=== PATIENT | female | born 1985 | race Two or more races ===

== ENCOUNTER 2017-07-23 22:15 | Emergency (ER) | payer OTHER ==
[~2017-07-23] VITALS: Ht 160 cm; Wt 54.4 kg
[2017-07-23] MEDS ORDERED: LORA10TA72 PO (23:01)
[2017-07-23] MEDS ORDERED: ONDANSETRON ODT 4 MG PO ONE (23:30)
[2017-07-23 23:51] LABS: HCG UR LOT HCG706132
[2017-07-23 23:52] LABS: HEMOGLOBIN 15.5 g/dL (11.7-16.4); WHITE BLOOD COUNT 15.1 x10^3/uL (3.4-10)
[2017-07-24 00:01] LABS: ASPARTATE AMINO TRANSFERASE 11 U/L (15-37); BLOOD UREA NITROGEN 17 mg/dL (7-18)
[2017-07-24 00:09] LABS: HCG UR OBC PASS
[2017-07-24] MEDS ORDERED: ONDANSETRON ODT 4 MG ONE (01:24)
[2017-07-24 01:29] VITALS: BP 117/72
== END 2017-07-24 01:32 | disposition home or self-care (01) ==
LOC: ED 23:59
DX: A09 Infectious gastroenteritis and colitis, unspecified (principal)
CPT/HCPCS: 36415; 80053; 81001; 81025; 83690; 85025; 99284; Q0162